=== PATIENT | female | born 1950 | race Caucasian/White ===

== ENCOUNTER 2018-08-18 10:08 | Inpatient (IN) | payer OTHER, MEDICARE ==
--- NOTE | 2018-08-18 10:35 | EDPHY ---
H & P Time Seen by Provider: 08/18/18 10:35 HPI/ROS: CHIEF COMPLAINT: Left chest wall pain and left leg pain HISTORY OF PRESENT ILLNESS: Patient is a 67-year-old female here with complaint of left lower leg pain and left chest wall pain since she fell from a ladder. She states she was 1 wrong up on the ladder when she slipped and cut her leg stuck between the 2 rungs of the ladder. She has been unable to wear right since. She was given 10 mg oxycodone by her before arrival in the emergency room. She takes no blood thinners. She denies any head injury. She denies any neck pain. She has no prior history of injury to the knee. She denies shortness of breath but does report pain with deep breath. REVIEW OF SYSTEMS: Constitutional: No fever, no chills. Eyes: No discharge. ENT: No sore throat. Cardiovascular: No chest pain, no palpitations. Respiratory: No cough, no shortness of breath. Gastrointestinal: No abdominal pain, no vomiting. Genitourinary: No hematuria. Musculoskeletal: No back pain. Skin: No rashes. Neurological: No headache. Smoking Status: Former smoker Physical Exam: General Appearance: Alert and no distress. No signs of head trauma including no raccoon eyes no Ragland signs, no scalp hematoma or crepitus. Neuro: Cranial nerves grossly intact Eyes: Pupils equal and round no injection. Respiratory: Chest is tender to the left chest wall without crepitus, lungs are clear to auscultation. Cardiac: regular rate and rhythm. Gastrointestinal: Abdomen is soft and nontender, no masses, bowel sounds normal. Musculoskeletal: Neck is supple and nontender. Tenderness to the left knee and left proximal fibula with large hematoma but no open skin lesions. Neurovascular intact distal to the left knee. Skin: No rashes or lesions. Constitutional: Initial Vital Signs Heart Rate 77 08/18/18 10:14 Respiratory Rate 20 08/18/18 10:14 Blood Pressure 121/73 H 08/18/18 10:14 O2 Sat (%) 99 08/18/18 10:14 O2 Delivery Mode Room Air Allergies/Adverse Reactions: levofloxacin Allergy (Verified 08/18/18 10:20) Rash Home Medications: Medication Instructions Recorded Herbals/Supplements -Info Only 1 ea PO DAILY 08/18/18 Medical Decision Making - Diagnostics Imaging Results: Imaging Impressions Tibia/Fibula X-Ray 08/18/18 10:40 Impression: Complex tibial plateau and proximal fibular fractures. 2. AP Pelvis, 2 views History: Pain post trauma, fall Findings: No pelvic ring fracture or malalignment is identified. Both hips are normally located. The SI joints and pubic symphysis look normal. There is degenerative sclerosis involving the left low lumbar spine and lumbosacral junction. Impression: No fracture or malalignment identified. 3. Left Tib-Fib, 3 views views History: Pain post fall Findings: The proximal tibial and fibular fractures are described in the knee x- ray report above. The more distal tibia and fibula are intact and normally aligned. The ankle mortise is grossly normally aligned. There is atherosclerotic calcification of the anterior and posterior tibialis arteries. Impression: 1. Intact mid and distal, tibia and fibula. 2. Atherosclerosis. Chest X-Ray 08/18/18 10:41 Impression: 3 left rib fractures. Pelvis X-Ray 08/18/18 10:41 Impression: Complex tibial plateau and proximal fibular fractures. 2. AP Pelvis, 2 views History: Pain post trauma, fall Findings: No pelvic ring fracture or malalignment is identified. Both hips are normally located. The SI joints and pubic symphysis look normal. There is degenerative sclerosis involving the left low lumbar spine and lumbosacral junction. Impression: No fracture or malalignment identified. 3. Left Tib-Fib, 3 views views History: Pain post fall Findings: The proximal tibial and fibular fractures are described in the knee x- ray report above. The more distal tibia and fibula are intact and normally aligned. The ankle mortise is grossly normally aligned. There is atherosclerotic calcification of the anterior and posterior tibialis arteries. Impression: 1. Intact mid and distal, tibia and fibula. 2. Atherosclerosis. Knee X-Ray 08/18/18 10:53 Impression: Complex tibial plateau and proximal fibular fractures. 2. AP Pelvis, 2 views History: Pain post trauma, fall Findings: No pelvic ring fracture or malalignment is identified. Both hips are normally located. The SI joints and pubic symphysis look normal. There is degenerative sclerosis involving the left low lumbar spine and lumbosacral junction. Impression: No fracture or malalignment identified. 3. Left Tib-Fib, 3 views views History: Pain post fall Findings: The proximal tibial and fibular fractures are described in the knee x- ray report above. The more distal tibia and fibula are intact and normally aligned. The ankle mortise is grossly normally aligned. There is atherosclerotic calcification of the anterior and posterior tibialis arteries. Impression: 1. Intact mid and distal, tibia and fibula. 2. Atherosclerosis. Extremity CT 08/18/18 12:18 Impression: Comminuted complex tibial plateau and fibular head fractures. Procedures: Long leg left posterior splint placed to the left leg ED Course/Re-evaluation: 67-year-old female here with ground level fall from a ladder. She has 3 left rib fractures with no pneumothorax better. Additionally she has a tibial plateau fracture and a proximal fibula fracture. I discussed this with on-call trauma DrIgnacio Who will admit the patient. Additionally discussed case with lynn who requests that she be placed in the splint after having CT scan of her knee done. Ortho agrees to consult on the patient while she is on the floor but likely will have surgery until Monday. Patient's pain is well controlled with fentanyl. There is no evidence of neurovascular injury, pneumothorax, intra- abdominal injury, closed head injury. - Data Points Laboratory Results: Laboratory Results 08/18/18 12:15 08/18/18 11:10 08/18/18 08/18/18 08/18/18 12:15 11:10 11:10 WBC 11.70 10^3/uL H 10^3/uL REJ (3.80-9.50) RBC 4.56 10^6/uL 10^6/uL TNP (4.18-5.33) Hgb 14.2 g/dL g/dL TNP (12.6-16.3) Hct 42.0 % % TNP (38.0-47.0) MCV 92.1 fL fL TNP (81.5-99.8) MCH 31.1 pg pg TNP (27.9-34.1) MCHC 33.8 g/dL g/dL TNP (32.4-36.7) RDW 13.0 % % TNP (11.5-15.2) Plt Count 267 10^3/uL 10^3/uL TNP (150-400) MPV 9.2 fL fL TNP (8.7-11.7) Neut % (Auto) 87.1 % H % TNP (39.3-74.2) Lymph % (Auto) 7.1 % L % TNP (15.0-45.0) Pope % (Auto) 4.8 % % TNP (4.5-13.0) Eos % (Auto) 0.3 % L % TNP (0.6-7.6) Baso % (Auto) 0.3 % % TNP (0.3-1.7) Nucleat RBC Rel Count 0.0 % % TNP (0.0-0.2) Absolute Neuts (auto) 10.18 10^3/uL H 10^3/uL TNP (1.70-6.50) Absolute Lymphs (auto) 0.83 10^3/uL L 10^3/uL TNP (1.00-3.00) Absolute Monos (auto) 0.56 10^3/uL 10^3/uL TNP (0.30-0.80) Absolute Eos (auto) 0.04 10^3/uL 10^3/uL TNP (0.03-0.40) Absolute Basos (auto) 0.04 10^3/uL 10^3/uL TNP (0.02-0.10) Absolute Nucleated RBC 0.00 10^3/uL 10^3/uL TNP (0-0.01) Immature Gran % 0.4 % % TNP (0.0-1.1) Immature Gran # 0.05 10^3/uL 10^3/uL TNP (0.00-0.10) Sodium 140 mEq/L mEq/L (135-145) Potassium 4.9 mEq/L mEq/L (3.3-5.0) Chloride 111 mEq/L H mEq/L (97-110) Carbon Dioxide 19 mEq/l L mEq/l (22-31) Anion Gap 10 mEq/L mEq/L (6-14) BUN 20 mg/dL mg/dL (7-23) Creatinine 0.7 mg/dL mg/dL (0.6-1.0) Estimated GFR > 60 Glucose 98 mg/dL mg/dL (70-100) Calcium 9.8 mg/dL mg/dL (8.5-10.4) Medications Given: Discontinued Medications Fentanyl (Sublimaze) 50 mcg IVP EDNOW ONE Stop: 08/18/18 10:43 Last Admin: 08/18/18 11:13 Dose: 50 mcg Departure - Departure Disposition: [facility]patient Acute
[2018-08-18] MEDS ORDERED: fentaNYL 100 MCG/2 ML INJ IVP ONE (10:42)
[2018-08-18 12:25] LABS: PLATELET COUNT 267 10^3/uL (150-400)
--- NOTE | 2018-08-18 12:53 | PDCONSULT ---
[place] Note: Chief complaint: Left leg pain after fall from a ladder History of present illness: This is a 67-year-old woman who had gotten up on a ladder to put away a walker and toilet seat from her 's recent surgeries and fell off the 1st step. Her leg was trapped and twisted she fell onto her left side. The patient complains of left leg pain mostly. Mild left chest pain on compression. She has no difficulty breathing no chest pain from a cardiac standpoint no respiratory difficulties. She is unable to bear weight on that left leg. She denies loss of consciousness she has no other complaints. Past medical history/surgical history significant for left forearm fracture and multiple bilateral cataract and retinal detachment surgeries, dental surgery. Family history: Negative Social history: Denies alcohol drug or tobacco use Review of systems significant for recent fall caused by mechanical reasons no cardiac or neurologic issues. All others are reviewed and are negative Medications at home: None Allergies: Levaquin Temp Pulse Resp BP Pulse Ox 72 16 133/83 H 99 08/18/18 11:17 08/18/18 11:17 08/18/18 11:17 08/18/18 11:17 Alert oriented no distress Extraocular motions intact Pupils 4 mm reactive Oropharynx bite intact no dental lesions Chest tender left lateral to palpation Lungs clear bilaterally Regular rate and rhythm Abdomen soft nontender not stented Left leg pain as expected. Did not go through range of motion due to recent fracture Distally neurovascularly intact Skin has normal turgor and tone Normal affect Nonfocal neurologic exam 08/18/18 12:15 08/18/18 11:10 Imaging Impressions Images personally reviewed on PACS with Dr. Moore hyper agree with findings Tibia/Fibula X-Ray 08/18/18 10:40 Impression: Complex tibial plateau and proximal fibular fractures. 2. AP Pelvis, 2 views History: Pain post trauma, fall Findings: No pelvic ring fracture or malalignment is identified. Both hips are normally located. The SI joints and pubic symphysis look normal. There is degenerative sclerosis involving the left low lumbar spine and lumbosacral junction. Impression: No fracture or malalignment identified. 3. Left Tib-Fib, 3 views views History: Pain post fall Findings: The proximal tibial and fibular fractures are described in the knee x- ray report above. The more distal tibia and fibula are intact and normally aligned. The ankle mortise is grossly normally aligned. There is atherosclerotic calcification of the anterior and posterior tibialis arteries. Impression: 1. Intact mid and distal, tibia and fibula. 2. Atherosclerosis. Chest X-Ray 08/18/18 10:41 Impression: 3 left rib fractures. Pelvis X-Ray 08/18/18 10:41 Impression: Complex tibial plateau and proximal fibular fractures. 2. AP Pelvis, 2 views History: Pain post trauma, fall Findings: No pelvic ring fracture or malalignment is identified. Both hips are normally located. The SI joints and pubic symphysis look normal. There is degenerative sclerosis involving the left low lumbar spine and lumbosacral junction. Impression: No fracture or malalignment identified. 3. Left Tib-Fib, 3 views views History: Pain post fall Findings: The proximal tibial and fibular fractures are described in the knee x- ray report above. The more distal tibia and fibula are intact and normally aligned. The ankle mortise is grossly normally aligned. There is atherosclerotic calcification of the anterior and posterior tibialis arteries. Impression: 1. Intact mid and distal, tibia and fibula. 2. Atherosclerosis. Knee X-Ray 08/18/18 10:53 Impression: Complex tibial plateau and proximal fibular fractures. 2. AP Pelvis, 2 views History: Pain post trauma, fall Findings: No pelvic ring fracture or malalignment is identified. Both hips are normally located. The SI joints and pubic symphysis look normal. There is degenerative sclerosis involving the left low lumbar spine and lumbosacral junction. Impression: No fracture or malalignment identified. 3. Left Tib-Fib, 3 views views History: Pain post fall Findings: The proximal tibial and fibular fractures are described in the knee x- ray report above. The more distal tibia and fibula are intact and normally aligned. The ankle mortise is grossly normally aligned. There is atherosclerotic calcification of the anterior and posterior tibialis arteries. Impression: 1. Intact mid and distal, tibia and fibula. 2. Atherosclerosis. Impression/plan 67-year-old woman with history of rib fractures nondisplaced minimal tenderness Complex left tibial fibular fracture including tibial plateau Consultation with Dr. Ayala from Orthopedic surgery likely surgery on Monday Admit to the hospital CT scan of the tibia and fibula per orthopedic surgery long leg splint. Nonweightbearing left lower extremity Regular diet for now Appropriate pain medication DVT prophylaxis
[2018-08-18] MEDS ORDERED: ZOLPIDEM TARTRATE 5 MG TAB PO PRN (12:54)
[2018-08-18] MEDS ORDERED: ONDANSETRON 4 MG/2 ML VIAL IVP PRN (12:54)
[2018-08-18] MEDS ORDERED: HYDROmorphONE/DILAUDID 1 MG/ML INJ IVP PRN (12:56)
[2018-08-18] MEDS: HYDROCODONE/APAP 5/325 TAB PO PRN ×2 (14:26→20:43)
--- NOTE | 2018-08-18 14:28 | PDMN ---
Medical Necessity Medical necessity: Pt meets IP criteria per & KEILY [id number]; est los >2 mn for eval/tx of L rib fxs x3 & tibial plateau fx s/p fall; requiring further monitoring, Ortho consult w/surgical intervention, pain management & therapies; per H&P & order 08/18/18
[2018-08-18] MEDS: IBUPROFEN 600 MG TAB PO SCH ×2 (16:43→22:16)
[2018-08-18] MEDS: KETOROLAC 30 MG/1 ML SDV IVP SCH (17:44)
--- NOTE | 2018-08-18 21:56 | GCON ---
DATE OF CONSULTATION: 08/18/2018 REASON FOR CONSULTATION: Left tibial plateau fracture. HISTORY OF PRESENT ILLNESS: The patient is a very pleasant 67-year-old female who fell 1 or 2 rungs off a ladder earlier today with her leg caught in the rungs and sustained a complex tibial plateau fr acture. She also sustained several rib fractures. She was admitted as a limited trauma. I was cons ulted for the tibial plateau fracture. She was also evaluated by Dr. Stafford due to the multiple sys tems involved. She was placed in a posterior splint and a CT was obtained while she was in the emerg ency department. PRIOR MEDICAL HISTORY: Unremarkable. PRIOR SURGICAL HISTORY: A forearm fracture on the left. MEDICATIONS: Only herbal supplements. SOCIAL HISTORY: She is . Her recently underwent a knee and hip surgery by Dr. Mccoy , just recently returned home. Does not smoke. Occasional alcohol use. REVIEW OF SYSTEMS: No loss of consciousness. No shortness of breath. No chest pain. Otherwise, re view of systems is unremarkable. PHYSICAL EXAMINATION: VITAL SIGNS: Blood pressure is 111/62, heart rate 73, respiratory rate 16, ox ygen saturation is 99% on room air. GENERAL: She is alert and oriented x3. HEENT: Normocephalic, atraumatic. Extraocular muscles are intact. NECK: Supple. There is no lymphadenopathy. No JVD. CHEST: Clear to auscultation. CARDIOVASCULAR: Regular rate and rhythm. MUSCULOSKELETAL: She is a little tender on the left side of her ribs, corresponding to the rib fractures. Left leg is in a sp lint. Compartments are swollen but soft. She has 1+ dorsalis pedis, posterior tibial pulses. Sensa tion to light touch is intact. There is no pain with passive stretch of the toes. IMAGING: Both x-rays, plain films as well as a CT and 3D reconstructions of the knee show a complex bicondylar tibial plateau fracture and a proximal fibula fracture. ASSESSMENT: Complex bicondylar tibial plateau fracture, left. PLAN: Will continue ice, elevation. She is quite swollen already. I do not know that we are going to be able to fix this immediately, this may need to be delayed at least a few days if not a week or two. I did explain that to her, she understands that. We will keep a close eye on her compartments over the next 48 hours, see if we can get her mobilized with Physical and Occupational Therapy, and t he ultimate plan will be for open reduction, internal fixation of the fracture. /[id number]/MODL
[2018-08-19] MEDS: KETOROLAC 30 MG/1 ML SDV IVP SCH ×2 (00:58→05:59)
[2018-08-19] MEDS: HYDROmorphONE/DILAUDID 2 MG/ML INJ IVP PRN ×2 (01:50→22:38)
[2018-08-19] MEDS: HYDROCODONE/APAP 5/325 TAB PO PRN ×4 (04:44→22:39)
[2018-08-19] MEDS: IBUPROFEN 600 MG TAB PO SCH ×3 (06:00→22:01)
[2018-08-19] MEDS ORDERED: ENOXAPARIN 30 MG/0.3 ML SYR SC SCH (09:00)
--- NOTE | 2018-08-19 10:48 | TRAUMAPN ---
Trauma Progress Note Assessment/Plan: 67 year old who fell from ladder with rib fx and comminuted tibial plateau fracture Tertiary survey performed and no additional injuries noted Cough deep breath for rib fx. No evidence of hemo or pneumothorax Awaiting for swelling to go down prior to surgery with Dr. Ayala. Will await his definitive time for OR I noted was on Toradol and Ibuprofen. Both doses given at 6 am. I discontinued the Toradol since she is able to take po. Regular diet for now S: Uncomfortable but pain is controlled Objective: Vital Signs Temp Pulse Resp BP Pulse Ox 36.4 C 66 12 121/68 H 100 08/19/18 08:00 08/19/18 08:00 08/19/18 08:00 08/19/18 08:00 08/19/18 08:00 08/18/18 08/19/18 08/20/18 05:59 05:59 05:59 Intake Total 250 Output Total 275 Balance -25 Physical Exam - Physical Exam General Appearance: WD/WN, alert, no apparent distress EENT: PERRL/EOMI, normal ENT inspection, No scleral icterus (R), No scleral icterus (L), No hearing deficit Respiratory: chest non-tender, lungs clear Cardiac/Chest: regular rate, rhythm, No edema Abdomen: normal bowel sounds, non-tender, soft Extremities: normal range of motion, non-tender, other (L lower extremity in splint. Sensation intact in toes. ) Neuro/Psych: no motor/sensory deficits, other (exception LLE)
--- NOTE | 2018-08-19 12:48 | SOAPPROG ---
NILO Progress Note Assessment/Plan: Assessment: Plan: 08/19/18 12:44 comminuted Lt tibial plateau fx Too swollen for surgery will need 1-2 weeks doubtfull she would be able to manage at home, had recent knee surgery will need snf placement Cont lovenox for dvt prroph Subjective: pain controlled o/n some tightness around ankle o/n relieved by loosening deena Objective: LE compartment swollen but soft 1+ dp/TP pulses no pain with passive stretch of toes Vital Signs Temp Pulse Resp BP Pulse Ox 36.4 C 78 16 101/57 L 95 08/19/18 12:00 08/19/18 12:00 08/19/18 12:00 08/19/18 12:00 08/19/18 12:00 08/18/18 08/19/18 08/20/18 05:59 05:59 05:59 Intake Total 250 Output Total 275 Balance -25 ICD10 Worksheet Patient Problems: Problems Problem Status Onset Tibial plateau fracture, left Acute - ICD10 Problem Qualifiers (1) Tibial plateau fracture, left Qualifiers: Encounter type: initial encounter Fracture type: closed Qualified Code(s) : S82.142A - Displaced bicondylar fracture of left tibia, initial encounter for closed fracture
--- NOTE | 2018-08-19 15:26 | ASMTLACE ---
GRETTA Acuity / Level of Answers: Yes Care: Did the patient have an inpatient admission? # of Emergency department Answers: 1-2 visits in the last 6 months Score: 4 Date Signed: 08/19/2018 03:26 PM Electronically Signed By:Juany Felton LCSW
--- NOTE | 2018-08-19 15:30 | ASMTCMCOM ---
CM Note CM Note Notes: 67yr old female admitted after a fall from a ladder with Tibial [pleateau fx, 3 rib fx's. Patient lives with her , Kaleb who reported just had hip or knee surgery. Patient will need to rest 1-2 wks for swelling to decrease before she can have surgery. Spoke to patient and who woud like her to go to [facility] before she has surgery. Referral made to [facility]. Date Signed: 08/19/2018 03:29 PM Electronically Signed By:Juany Felton LCSW
[2018-08-20] MEDS: HYDROCODONE/APAP 5/325 TAB PO PRN ×2 (04:40→11:06)
[2018-08-20] MEDS: IBUPROFEN 600 MG TAB PO SCH ×3 (05:25→21:24)
--- NOTE | 2018-08-20 08:29 | TRAUMAPN ---
Trauma Progress Note Assessment/Plan: 67-year-old patient presented with fall from a ladder. She sustained left rib fractures as well as complex left tibial plateau fracture. She has been seen by Dr. Ayala from Orthopedic surgery who has recommended operative treatment after swelling has gone down in 1-2 weeks. Pain level at a 4-5 overnight She is currently comfortable. Has less pain. She is able to move her foot a little bit better. Remains swollen as expected. Alert oriented no distress regular rate and rhythm Clear to auscultation. Tender left chest Abdomen soft nontender nondistended Extremity splinted left lower. Swelling as expected intact peripheral pulses good capillary refill Impression/plan Doing well from a respiratory and pain standpoint. Will need placement. Likely 24 hr prior to discharge. Follow up with Dr. Ayala for her left knee tibial plateau fracture no specific care for her rib fractures. Continue ISS. Pain medication orally if able. Objective: Vital Signs Temp Pulse Resp BP Pulse Ox 36.8 C 80 16 108/62 95 08/20/18 07:34 08/20/18 07:34 08/20/18 07:34 08/20/18 07:34 08/20/18 07:34 08/19/18 08/20/18 08/21/18 05:59 05:59 05:59 Intake Total 250 2049 Output Total 275 -2049
[2018-08-20] MEDS: ENOXAPARIN 40 MG/0.4 ML SYR SC SCH (09:27)
[2018-08-20] MEDS ORDERED: MAGNESIUM HYDROXIDE 30 ML UDCUP PO PRN (11:42)
[2018-08-20] MEDS ORDERED: BISACODYL 10 MG SUPP PR PRN (11:42)
[2018-08-20] MEDS ORDERED: POLYETHYLENE GLYCOL 3350 17 GM PKT PO PRN (11:42)
[2018-08-20] MEDS ORDERED: LACTULOSE 20 GM/30 ML UDCUP PO PRN (11:42)
--- NOTE | 2018-08-20 11:56 | SOAPPROG ---
NILO Progress Note Assessment/Plan: Assessment: Plan: 08/19/18 12:44 comminuted Lt tibial plateau fx Too swollen for surgery will need 1-2 weeks doubtfull she would be able to manage at home, had recent knee surgery will need snf placement Cont lovenox for dvt prroph 08/20/18 11:55 Cont Ice/elevation SNF possible surgery early next week F/U my office end of this week Subjective: pain managed with norco Objective: splint fitting well compartments swollen but soft moving toes without pain Vital Signs Temp Pulse Resp BP Pulse Ox 36.8 C 80 16 108/62 95 08/20/18 07:34 08/20/18 07:34 08/20/18 07:34 08/20/18 07:34 08/20/18 07:34 08/19/18 08/20/18 08/21/18 05:59 05:59 05:59 Intake Total 250 2050 Output Total 275 Balance -25 0 ICD10 Worksheet Patient Problems: Problems Problem Status Onset Tibial plateau fracture, left Acute - ICD10 Problem Qualifiers (1) Tibial plateau fracture, left Qualifiers: Encounter type: initial encounter Fracture type: closed Qualified Code(s) : S82.142A - Displaced bicondylar fracture of left tibia, initial encounter for closed fracture
[2018-08-20] MEDS: SENNOSIDES/DOCUSATE SODIUM TAB PO SCH ×2 (13:06→21:23)
[2018-08-20] MEDS: HYDROCODONE/APAP 10/325 TAB PO PRN ×2 (15:27→21:24)
[2018-08-20] MEDS: HYDROmorphONE/DILAUDID 2 MG/ML INJ IVP PRN ×2 (16:53→22:11)
[2018-08-20] MEDS ORDERED: SENNOSIDES/DOCUSATE SODIUM TAB PO SCH (21:00)
[2018-08-21] MEDS: HYDROCODONE/APAP 10/325 TAB PO PRN ×2 (05:25→14:39)
[2018-08-21] MEDS: IBUPROFEN 600 MG TAB PO SCH ×2 (05:25→14:39)
[2018-08-21] MEDS: HYDROmorphONE/DILAUDID 2 MG/ML INJ IVP PRN (07:53)
[2018-08-21] MEDS: SENNOSIDES/DOCUSATE SODIUM TAB PO SCH (10:02)
[2018-08-21] MEDS: ENOXAPARIN 40 MG/0.4 ML SYR SC SCH (10:02)
[2018-08-21 12:05] VITALS: BP 130/88
--- NOTE | 2018-08-21 12:37 | SOAPPROG ---
SOAP Progress Note Assessment/Plan: Assessment: comminuted Lt tibial plateau fx. She has had increased swelling in the splint. Dressing was loosened today and pain has improved. PE: Dressing removed. Compartments are soft. No pain to calf compression. NV intact LLE. Plan: Too swollen for surgery will need 1-2 weeks Splint removed and knee immobilizer placed Cont lovenox for dvt prroph Cont Ice/elevation Transfer to [facility] possible surgery early next week F/U my office end of this week (Monday) 08/21/18 12:34 Objective: Vital Signs Temp Pulse Resp BP Pulse Ox 37.2 C 98 16 130/88 H 97 08/21/18 12:03 08/21/18 12:03 08/21/18 12:03 08/21/18 12:03 08/21/18 12:03 08/20/18 08/21/18 08/22/18 05:59 05:59 05:59 Intake Total 0 300 Balance 2049 300 ICD10 Worksheet Patient Problems: Problems Problem Status Onset Tibial plateau fracture, left Acute
--- NOTE | 2018-08-21 13:02 | PDIAF ---
- Diagnosis Diagnosis: Left rib fractures, left tibial plateau fracture Code Status: Full Code - Medication Management Discharge Medications: Medications to Continue on Transfer Herbals/Supplements -Info Only 1 ea PO DAILY 08/18/18 [Last Taken 08/17/18] Enoxaparin [Lovenox 40 MG (*)] 40 mg SC DAILY syr 08/21/18 [Last Taken Unknown] HYDROcodone/APAP [Congress (*)] 1 tab PO Q6HRS PRN tab 08/21/18 [ Last Taken Unknown] Ibuprofen [Motrin (*)] 600 mg PO Q8HRS tab 08/21/18 [Last Taken Unknown] Polyethylene Glycol 3350 [Miralax 17 gm (*)] 17 gm PO DAILY PRN pkt 08/21/18 [ Last Taken Unknown] Sennosides/Docusate Sodium [Senokot-S] 1 - 2 tab PO BID tab 08/21/18 [Last Taken Unknown] Zolpidem Tartrate [Ambien 5MG (*)] 5 - 10 mg PO HS PRN tab 08/21/18 [Last Taken Unknown] Discharge Medications: Refer to the Discharge Home Medication list for PRN reason. - Orders Services needed: Registered Nurse, Physical Therapy, Occupational Therapy Isolation Type: None Diet Recommendation: no restrictions on diet Diet Texture: Regular Texture Diet Activity/Weight Bearing Restrictions: Nonweightbearing left lower extremity - Follow Up Care Current Providers and Referrals: Kirill Ayala MD [Medical Doctor] - follow up as scheduled (CALL OFFICE TO CONFIRM [facility]. [facility] REPAIR WILL BE DONE AFTER SWELLING SUBSIDES. ) NONE *PRIMARY CARE P,. [Primary Care Provider] -
--- NOTE | 2018-08-21 13:05 | PDDCSUM ---
Discharge Summary Discharge Summary: This is a 67-year-old patient who presented to the hospital by ambulance non trauma admit for a fall off a ladder. The patient was attempting to put away her 's durable medical equipment and got her leg trapped in the 1st rung of the ladder and fell onto the left side. She sustained left-sided rib fractures with minimal pain or displacement as well as a complicated tibial plateau fracture. She was seen in consultation by Dr. Kirill Ayala who has placed her initially in a splint and then in a knee immobilizer until definitive care can be accomplished. The patient will need ORIF when swelling has gone down until then skilled medical care is required. She will be placed on pain medication orally. She will have Lovenox for DVT prophylaxis. Follow- up appointment is scheduled with Dr. Ayala for this Monday. 08/18/18 12:15 08/18/18 11:10 She is back to her baseline cardiopulmonary status Her complaints are of left leg pain. Respiratory function is adequate. Medications to Continue on Transfer Herbals/Supplements -Info Only 1 ea PO DAILY 08/18/18 [Last Taken 08/17/18] Enoxaparin [Lovenox 40 MG (*)] 40 mg SC DAILY syr 08/21/18 [Last Taken Unknown] HYDROcodone/APAP 10 [[place] 10325 (*)] 1 tab PO Q6HRS PRN tab 08/21/18 [ Last Taken Unknown] Ibuprofen [Motrin (*)] 600 mg PO Q8HRS tab 08/21/18 [Last Taken Unknown] Polyethylene Glycol 3350 [Miralax 17 gm (*)] 17 gm PO DAILY PRN pkt 08/21/18 [ Last Taken Unknown] Sennosides/Docusate Sodium [Senokot-S] 1 - 2 tab PO BID tab 08/21/18 [Last Taken Unknown] Zolpidem Tartrate [Ambien 5MG (*)] 5 - 10 mg PO HS PRN tab 08/21/18 [Last Taken Unknown] Discharge Medications Discharge ED Provider: Luis Fernando Navarro Status: Z Complete Time Seen by Provider: 08/18/18 10:35 Condition: Good Triaged At: 08/18/18 10:14 Other ED Providers: Trauma,Services Emergency Discharge Date/Time: 08/18/18 13:58 Emergency Discharge Disposition: [facility] Acute Clinical Impression Emergency Discharge Comment: Admit Intervention Last Done Discharge Assessment-ED 08/18/18 13:44 Query Result Associated Mechanism of Injury/Trauma Yes Limited/Minor Trauma Patient Surgical No Evaluation Transmission Repairer Services Used During Patient No 's Visit Disposition [facility] Admission/Transfer [facility] Admit/Transfer Destination [facility] Admission Delayed Over 1 Hour Due to No Delay Pt Evaluated By Admitting MD Yes Recent History of MDRO/Clostridium No Difficile Any Patient Safety Concerns Fall Risk Significant Events in the ED No Mentation at Admission AAOx3 Medications Reviewed During Report Yes Psychosocial issues None Identified Report Called to Floor 13:35 Nurses Name/Number Receiving Report Dang JOSE [id number] Further Questions Contact Margarita ED Patient Required Critical Care During ED No Course IV Hydration/Medications Infusing at No Discharge Inpatient Discharge Date/Time: Inpatient Discharge Disposition: Long Term Facility Inpatient Discharge Comment: Instructions: Leg Fracture (DC) Rib Fracture (DC) Splint Care (DC) Prescriptions:
--- NOTE | 2018-08-21 14:27 | ASDISCHSUM ---
Discharge Information Plan Status:SNF Medically Cleared to Leave:08/21/2018 Discharge Date:08/21/2018 CM D/C Disposition[facility] ADT D/C Disposition:[facility] Projected Discharge Date:08/21/2018 03:00 PM Transportation at D/C: Discharge Delay Reason: Follow-Up Date:08/21/2018 03:00 PM Discharge Slot:3 - 18:01 pm - 12:00 am Final Diagnosis:Fall from ladder:tibial plateau fx, 3 rib fxs Placement Information Referral Type:*Snf/SNF Referral ID:[id number] Provider Name:[facility] Address 1:[address] Address 2: City:[place] Selection Factors: State:[place] Patient Contact Information Contact Name:JT Relationship: Address:[address] [facility] City:[place] Alternate Phone: State/Zip Code:[place] [address] Email: Financial Information Financial Class:Medicare Primary Plan Desc:MEDICARE INPATIENT Primary Plan Number:[id number] Secondary Plan Desc:AARP/MDR SUPPLEMENT Secondary Plan Number:[id number] Assessment Information LACE LACE Acuity / Level of Answers: Yes Care: Did the patient have an inpatient admission? # of Emergency department Answers: 1-2 visits in the last 6 months Score: 4 Date Signed: 08/19/2018 03:26 PM Electronically Signed By:Juany Felton LCSW [facility] CM Progress Note CM Note CM Note Notes: 67yr old female admitted after a fall from a ladder with Tibial [pleateau fx, 3 rib fx's. Patient lives with her , Kaleb who reported just had hip or knee surgery. Patient will need to rest 1-2 wks for swelling to decrease before she can have surgery. Spoke to patient and who woud like her to go to [facility] before she has surgery. Referral made to [facility]. Date Signed: 08/19/2018 03:29 PM Electronically Signed By:Juany Felton LCSW Case Management Discharge Plan Note Case Management Discharge Discharge Order Complete? Answers: Yes Patient to Obtain Answers: Other Notes: [facility] Medications Transportation Arranged Answers: Other Notes: [facility] Transport will Pick (Date 08/21/2018 04:00 PM & Time) Case Management Transport Answers: Yes Form Complete Faxed Final Orders Answers: Yes Notes: [facility] Agency/Facility Transfer Answers: Yes Report Printed & Faxed to Receiving Agency Discharge Comments Notes: Patient has been discharged to [facility]. Transporting by ambulance. Date Signed: 08/21/2018 02:25 PM Electronically Signed By:Juany Felton LCSW Intervention Information
[2018-08-21] MEDS ORDERED: HYDROmorphONE/DILAUDID 2 MG TAB PO PRN (14:54)
--- NOTE | 2018-08-21 16:56 | PDIAF ---
- Diagnosis Diagnosis: Left rib fractures, left tibial plateau fracture Code Status: Full Code - Medication Management Discharge Medications: Medications to Continue on Transfer Herbals/Supplements -Info Only 1 ea PO DAILY 08/18/18 [Last Taken 08/17/18] Enoxaparin [Lovenox 40 MG (*)] 40 mg SC DAILY syr 08/21/18 [Last Taken Unknown] HYDROcodone/APAP [[place] (*)] 1 tab PO Q6HRS PRN tab 08/21/18 [ Last Taken Unknown] HYDROmorphone HCL [Dilaudid 2 mg (*)] 2 mg PO Q6-8PRN PRN 08/21/18 [Last Taken Unknown] Ibuprofen [Motrin (*)] 600 mg PO Q8HRS tab 08/21/18 [Last Taken Unknown] Polyethylene Glycol 3350 [Miralax 17 gm (*)] 17 gm PO DAILY PRN pkt 08/21/18 [ Last Taken Unknown] Sennosides/Docusate Sodium [Senokot-S] 1 - 2 tab PO BID tab 08/21/18 [Last Taken Unknown] Zolpidem Tartrate [Ambien 5MG (*)] 5 - 10 mg PO HS PRN tab 08/21/18 [Last Taken Unknown] Discharge Medications: Refer to the Discharge Home Medication list for PRN reason. - Orders Services needed: Registered Nurse, Physical Therapy, Occupational Therapy Isolation Type: None Diet Recommendation: no restrictions on diet Diet Texture: Regular Texture Diet Activity/Weight Bearing Restrictions: Nonweightbearing left lower extremity - Follow Up Care Current Providers and Referrals: Kirill Ayala MD [Medical Doctor] - follow up as scheduled (CALL OFFICE TO CONFIRM APT. WUGERICAL REPAIR WILL BE DONE AFTER SWELLING SUBSIDES. ) NONE *PRIMARY CARE P,. [Primary Care Provider] -
== END 2018-08-21 18:15 | DRG 563 ==
LOC: F3N 14:10
PROVIDERS: ADMIT Surgery; ATTEND Surgery
PROC: 2W3RX1Z Immobilization of Left Lower Leg using Splint (ICD-10-PCS; principal; 2018-08-18)
DX: S82.142A Displaced bicondylar fracture of left tibia, initial encounter for closed fracture (principal); S82.832A Other fracture of upper and lower end of left fibula, initial encounter for closed fracture; S22.42XA Multiple fractures of ribs, left side, initial encounter for closed fracture; W11.XXXA Fall on and from ladder, initial encounter; Y92.019 Unspecified place in single-family (private) house as the place of occurrence of the external cause; Y93.E9 Activity, other interior property and clothing maintenance; Z87.891 Personal history of nicotine dependence
CPT/HCPCS: 96374; 97116-GP; 97161-GP; 97165-GO; 97530-GO; 97530-GP; 97535-GO; G8978-GP-CK; G8979-GP-CJ; G8987-GO-CK; G8988-GO-CH; J1170; J1650; J1885; J2270; J3010

== ENCOUNTER 2018-09-04 12:12 | Inpatient (IN) | payer OTHER, MEDICARE ==
--- NOTE | 2018-09-04 08:24 | PDGENHP ---
History & Physical Chief Complaint: Left tibial plateau fracture History of Present Illness: Martha is a pleasant 67 year old female who presented to the ER with left tibial plateau fracture on 08/18/18. Swelling was too bad initially to perform surgical intervention. She is now ready for surgical intervention. Pertinent Past, Social, Family History: PMH: non. Social history: non- contributory. Family history: non-contributory Relevant Physical Exam: Knee immobilizer in place. Swelling has improved significantly since patient was seen in the hospital. TTP over the medial and lateral tibial platea. Calf is soft to compression without pain. DF/PF of foot intact. NV intact LLE. Cardiorespiratory Assessment: RRR, CTAB
[2018-09-04] MEDS ORDERED: ceFAZolin 2 GM/DEXTROSE 100 ML IV ONE (12:25)
[2018-09-04] MEDS ORDERED: LR 1,000 ML IV ONE (12:26)
[2018-09-04] MEDS ORDERED: LIDOCAINE 1% 2 ML INJ ID PRN (12:26)
[2018-09-04] MEDS ORDERED: BACITRACIN 50,000 UNITS/10 ML SYR IRR ONE (13:22)
[2018-09-04] MEDS ORDERED: BUPIVACAINE/EPI 0.5% 30 ML SDV ONE (13:22)
[2018-09-04] MEDS ORDERED: THROMBIN (BOVINE) 5,000 UNIT VIAL TP ONE (13:50)
[2018-09-04] MEDS ORDERED: CALCIUM CHLORIDE 1 GM/10 ML INJ ONE (13:50)
[2018-09-04] MEDS ORDERED: oxyCODONE IR 5 MG TAB PO PRN (14:33)
[2018-09-04] MEDS ORDERED: ACETAMINOPHEN 500 MG TAB PO PRN (14:33)
[2018-09-04] MEDS ORDERED: ALBUTEROL 3 ML DEYVIAL IH PRN (14:33)
[2018-09-04] MEDS ORDERED: NALOXONE HCL 0.4 MG/ML INJ IVP PRN (14:33)
[2018-09-04] MEDS ORDERED: ONDANSETRON 4 MG/2 ML VIAL IVP PRN ×2 (14:33→16:58)
[2018-09-04] MEDS ORDERED: DEXAMETHASONE 4 MG/ML VIAL IVP PRN (14:33)
[2018-09-04] MEDS ORDERED: MIDAZOLAM 2 MG/2 ML VIAL IVP ONE (14:33)
--- NOTE | 2018-09-04 14:34 | PDANEPAE ---
ANE History of Present Illness Left Tibia Plateau Fx Repair ANE Past Medical History - Cardiovascular History Hx Hypertension: No Hx Arrhythmias: No Hx Chest Pain: No Hx Coronary Artery / Peripheral Vascular Disease: No Hx CHF / Valvular Disease: No Hx Palpitations: No - Pulmonary History Hx COPD: No Hx Asthma/Reactive Airway Disease: No Hx Recent Upper Respiratory Infection: No Hx Oxygen in Use at Home: No Hx Sleep Apnea: No Sleep Apnea Screening Result - Last Documented: Negative - Neurologic History Hx Cerebrovascular Accident: No Hx Seizures: No Hx Dementia: No - Endocrine History Hx Diabetes: No - Renal History Hx Renal Disorders: No Renal History Comment: HX OF UTI 4 YEARS AGO - Liver History Hx Hepatic Disorders: No Hepatic History Comment: has had a gallbladder attack in the past but nothing recent - Neurological & Psychiatric Hx Hx Neurological and Psychiatric Disorders: No - Cancer History Hx Cancer: No - Congenital Disorder History Hx Congenital Disorders: Yes Congenital History Comment: scoliosis - GI History Hx Gastrointestinal Disorders: Yes Gastrointestinal History Comment: Hx diverticulitis - Other Health History Other Health History: lower dentures. left lower leg with blisters r/t first cast - Chronic Pain History Chronic Pain: Yes (scoliosis) - Surgical History Prior Surgeries: Left wrist ORIF, 2015. retinal detachment repair 2017 ANE Review of Systems Review of Systems: - Exercise capacity METS (RN): 4 METS ANE Patient History - Allergies Allergies/Adverse Reactions: levofloxacin Allergy (Verified 08/18/18 10:20) Rash - Home Medications Home Medications: Herbals/Supplements -Info Only 1 ea PO DAILY 08/18/18 [Last Taken 08/17/18] CeleBREX 09/03/18 [Last Taken 09/03/18] Enoxaparin [Lovenox 40 MG (*)] DAILY 09/03/18 [Last Taken 09/03/18] Gabapentin 09/03/18 [Last Taken 09/04/18] HYDROcodone/APAP [[place] 10325 (*)] Q6HRS PRN 09/03/18 [Last Taken ] - NPO status NPO Since - Liquids (Date): 09/03/18 NPO Since - Liquids (Time): 20:00 NPO Since - Solids (Date): 09/04/18 NPO Since - Solids (Time): 12:00 - Smoking Hx Smoking Status: Never smoked - Family Anes Hx Family Hx Anesthesia Complications: none ANE Labs/Vital Signs - Vital Signs Blood Pressure: 115/72 Heart Rate: 77 Respiratory Rate: 18 O2 Sat (%): 93 Height: 160.02 cm Weight: 60.781 kg ANE Physical Exam - Airway Neck exam: FROM Mallampati Score: Class 2 Mouth exam: normal dental/mouth exam - Pulmonary Pulmonary: clear to auscultation - Cardiovascular Cardiovascular: regular rate and rhythym - ASA Status ASA Status: I ANE Anesthesia Plan Anesthesia Plan: general endotracheal anesthesia
[2018-09-04] MEDS ORDERED: PROPOFOL 200 MG/20 ML VIAL ONE (14:41)
[2018-09-04] MEDS ORDERED: ROCURONIUM 50 MG/5 ML VIAL ONE ×2 (14:43→15:41)
[2018-09-04] MEDS ORDERED: fentaNYL 100 MCG/2 ML INJ ONE ×3 (14:44→17:25)
[2018-09-04] MEDS ORDERED: HYDROmorphONE/DILAUDID 2 MG/ML INJ ONE ×2 (15:09→17:07)
[2018-09-04] MEDS ORDERED: DEXAMETHASONE 4 MG/ML VIAL ONE (15:11)
[2018-09-04] MEDS ORDERED: ONDANSETRON 4 MG/2 ML VIAL ONE (15:11)
[2018-09-04] MEDS ORDERED: SUGAMMADEX SODIUM 200 MG/2 ML VIAL IVP ONE (16:39)
[2018-09-04] MEDS ORDERED: NALOXONE HCL 0.4 MG/ML INJ ONE (16:49)
[2018-09-04] MEDS ORDERED: DIPHENOXYLATE/ATROPINE LOMOTIL 1 TAB PO PRN (16:58)
[2018-09-04] MEDS ORDERED: LACTULOSE 20 GM/30 ML UDCUP PO PRN (16:58)
[2018-09-04] MEDS ORDERED: diphenhydrAMINE 25 MG CAP PO PRN (16:58)
[2018-09-04] MEDS ORDERED: BISACODYL 10 MG SUPP PR PRN (16:58)
[2018-09-04] MEDS ORDERED: TEMAZEPAM 15 MG CAP PO PRN (16:58)
[2018-09-04] MEDS ORDERED: PROMETHAZINE HCL 25 MG SUPPR PR PRN (16:58)
[2018-09-04] MEDS ORDERED: MAGNESIUM HYDROXIDE 30 ML UDCUP PO PRN (16:58)
[2018-09-04] MEDS ORDERED: PROMETHAZINE HCL 25 MG/ML INJ IVP PRN (16:58)
[2018-09-04] MEDS ORDERED: ONDANSETRON DISINTEGRATING 4 MG TAB PO PRN (16:58)
[2018-09-04] MEDS ORDERED: METOCLOPRAMIDE 10 MG/2 ML VIAL IVP PRN (16:58)
[2018-09-04] MEDS ORDERED: LR 1,000 ML IV SCH (17:00)
--- NOTE | 2018-09-04 17:00 | POSTANESTH ---
Post Anesthetic Evaluation Cardiovascular Status: Normal, Stable Respiratory Status: Normal, Stable Level of Consciousness/Mental Status: Can Participate in Eval, Alert and Oriented Pain Control: Inadeq, Add Tx Required Nausea/Vomiting Control: Adequate, Prn Tx Ordered Complications Possibly Related to Anesthesia: None Noted
[2018-09-04] MEDS: fentaNYL 100 MCG/2 ML INJ IVP PRN ×4 (17:01→17:45)
--- NOTE | 2018-09-04 17:06 | POSTOPPROG ---
Post Op Note Date of Operation: 09/04/18 Surgeon: Kirill Ayala Engraver Apprentice Decorative: Connie Munoz Anesthesiologist: Crista Anesthesia: GET(General Endotracheal) Pre-op Diagnosis: Left tibial plateau fracture Post-op Diagnosis: Left tibial plateau fracture Indication: Left tibial plateau fracture Procedure: ORIF left tibial plateau fracture Inf/Abcess present in the surg proc area at time of surgery?: No Depth: Deep Incisional (Fascial) EBL: Minimal
[2018-09-04] MEDS: HYDROmorphONE/DILAUDID 2 MG/ML INJ IVP PRN ×3 (17:11→17:36)
[2018-09-04] MEDS: oxyCODONE IR 5 MG TAB PO PRN ×2 (19:19→19:52)
[2018-09-04] MEDS: CYCLOBENZAPRINE 10 MG TAB PO PRN (19:46)
[2018-09-04] MEDS: SENNOSIDES/DOCUSATE SODIUM TAB PO SCH (19:46)
[2018-09-04] MEDS: ACETAMINOPHEN 325 MG TAB PO SCH (19:46)
[2018-09-04] MEDS: FAMOTIDINE 20 MG TAB PO SCH (19:48)
[2018-09-04] MEDS: ASPIRIN 325 MG TAB PO SCH (19:49)
[2018-09-05] MEDS: oxyCODONE IR 5 MG TAB PO PRN ×5 (01:24→21:16)
[2018-09-05] MEDS: ACETAMINOPHEN 325 MG TAB PO SCH ×5 (01:28→17:28)
--- NOTE | 2018-09-05 05:29 | GOP ---
DATE OF OPERATION: 09/04/2018 SURGEON: Kirill Ayala MD BARREL [employer]SHAKE ADJUSTER: Layo Jane. ANESTHESIOLOGIST: Dr. Tobin. PREOPERATIVE DIAGNOSIS: Bicondylar tibial plateau fracture. POSTOPERATIVE DIAGNOSIS: Bicondylar tibial plateau fracture. PROCEDURE PERFORMED: Open reduction internal fixation, bicondylar tibial plateau fracture. FINDINGS: INDICATIONS: Mayra is a 67-year-old female, who about 2-1/2 weeks ago, fell off a ladder, and susta ined a complex bicondylar tibial plateau fracture. She had immediate swelling around the knee. She was mobilized, transferred to [facility] until swelling had subsided, and she was brought to the OR t [facility] for definitive fixation of her fractures. DESCRIPTION OF PROCEDURE: After appropriate informed consent was obtained, patient was taken to the operating room, placed supine on the operating room table. Timeout was performed. Patient was ident ified, correct site was identified, and matched with radiographs available in the room. She received 2 g of Ancef preoperatively. Following the induction of general endotracheal tube anesthesia, the l t lower extremity was prepped and draped in usual sterile fashion. I exsanguinated the limb, infla earl the tourniquet to 250 mmHg. Total tourniquet time was 90 minutes. I made a standard utility lat eral incision. Soft tissues were carefully dissected. Bleeding was controlled with electrocautery. I elevated off the anterior compartment musculature. Fracture was easily visualized. The piece was completely displaced and rotated. I then created a small medial incision to create a window to elev ate the medial side and posterior side of the joint. While looking into the joint, there was some ar ticular cartilage damage. These loose fragments were removed. Meniscus was intact, as was the ACL a nd PCL. The fracture was just on the lateral side of the tibial spines. I was able to line up the f ragment, compress it with a tenaculum clamp, and then hold it in place with K-wires. A precontoured plate was placed. I centered it slightly lower to enable me to get better purchase in the posterior fragments. A series of proximal locking screws, followed by 1 compression screw distally, to charisse s the fracture. I confirmed their position with AP lateral fluoroscopic images. We then finished th e shaft screws, locking those. Final imaging, both AP and lateral, were obtained, which showed satis factory reduction of the fracture fragment. Joint space was realigned. Wounds were irrigated. The deep layers were closed with 0 Vicryl, superficial layers closed with 2-0 Vicryl, skin closed with st aples. We instilled 30 mL of 0.5% Marcaine with epinephrine on the incision. A sterile dressing and knee immobilizer were applied. Patient was awakened from anesthesia, taken to the recovery room in satisfactory condition. There were no immediate intraoperative complications. Layo Jane's assistance was required throughout the entire case. IMPLANTS: Synthes 3.5 mm proximal tibial locking plate. TOTAL TOURNIQUET TIME: 90 minutes at 250 mmHg. COMPLICATIONS: None. DRAINS: None. /[id number]/MODL
[2018-09-05] MEDS: FAMOTIDINE 20 MG TAB PO SCH ×2 (08:45→21:16)
[2018-09-05] MEDS: ASPIRIN 325 MG TAB PO SCH (08:45)
[2018-09-05] MEDS: SENNOSIDES/DOCUSATE SODIUM TAB PO SCH ×2 (08:45→21:16)
[2018-09-05] MEDS: CYCLOBENZAPRINE 10 MG TAB PO PRN ×2 (08:55→21:17)
[2018-09-05] MEDS ORDERED: POLYETHYLENE GLYCOL 3350 17 GM PKT PO PRN (11:00)
--- NOTE | 2018-09-05 11:24 | SOAPPROG ---
SOAP Progress Note Assessment/Plan: Assessment: Plan: 09/05/18 11:22 POD#1 ORIF LT tibial plateau cont pain management ASA dvt proph NWB LLE Subjective: Painful o/n, a little better now Objective: DRessing c/d/i calf soft 5/5 df/pf 1+ dp/tp pulses Vital Signs Temp Pulse Resp BP Pulse Ox 36.6 C 92 14 123/72 H 98 09/05/18 07:39 09/05/18 07:39 09/05/18 07:39 09/05/18 07:39 09/05/18 07:39 09/04/18 09/05/18 09/06/18 05:59 05:59 05:59 Intake Total 2160 Output Total 1630 300 Balance 530 -300 ICD10 Worksheet Patient Problems: Problems Problem Status Onset Tibial plateau fracture, left Acute
--- NOTE | 2018-09-05 14:48 | PDMN ---
Medical Necessity Medical necessity: IP only procedure CPT 96986 L tibial plateau ORIF
[2018-09-05] MEDS: GABAPENTIN 100 MG CAP PO SCH ×2 (15:16→21:17)
--- NOTE | 2018-09-05 15:40 | ASMTCMCOM ---
CM Note CM Note Notes: Pt admitted from short term rehab stay with [facility] after presenting to our ED with a tibial fracture from a fall before rehab. Pt received corrective surgery yesterday. PT and OT recommending SNF. Pt prefers to return to [facility]. Per pt's RN pt not likely to discharge today due to pain control but may discharge tomorrow. Referral sent to [facility] and they are willing to accept. CM to follow. D/C Plan: [facility] Date Signed: 09/05/2018 03:38 PM Electronically Signed By:Nasra Harrison
[2018-09-06] MEDS: ACETAMINOPHEN 325 MG TAB PO SCH ×5 (01:55→23:39)
[2018-09-06] MEDS: oxyCODONE IR 5 MG TAB PO PRN ×4 (01:55→20:33)
[2018-09-06] MEDS: FAMOTIDINE 20 MG TAB PO SCH ×2 (08:10→20:33)
[2018-09-06] MEDS: GABAPENTIN 100 MG CAP PO SCH ×3 (08:10→23:39)
[2018-09-06] MEDS: ASPIRIN 325 MG TAB PO SCH (08:10)
[2018-09-06] MEDS: SENNOSIDES/DOCUSATE SODIUM TAB PO SCH ×2 (08:10→20:33)
[2018-09-06] MEDS: KETOROLAC 15 MG/1 ML SDV IVP SCH ×3 (12:41→23:39)
[2018-09-06] MEDS: ENOXAPARIN 40 MG/0.4 ML SYR SC SCH (15:45)
[2018-09-06] MEDS ORDERED: KETOROLAC 15 MG/1 ML SDV IVP SCH (18:00)
[2018-09-06] MEDS: POLYETHYLENE GLYCOL 3350 17 GM PKT PO PRN (20:32)
[2018-09-07] MEDS: KETOROLAC 15 MG/1 ML SDV IVP SCH ×2 (06:06→11:23)
[2018-09-07] MEDS: ACETAMINOPHEN 325 MG TAB PO SCH ×2 (06:06→11:23)
[2018-09-07] MEDS: SENNOSIDES/DOCUSATE SODIUM TAB PO SCH (08:42)
[2018-09-07] MEDS: ASPIRIN 325 MG TAB PO SCH (08:42)
[2018-09-07] MEDS: POLYETHYLENE GLYCOL 3350 17 GM PKT PO PRN (08:42)
[2018-09-07] MEDS: oxyCODONE IR 5 MG TAB PO PRN ×2 (08:42→14:10)
[2018-09-07] MEDS: GABAPENTIN 100 MG CAP PO SCH (08:43)
[2018-09-07] MEDS: ENOXAPARIN 40 MG/0.4 ML SYR SC SCH (08:43)
[2018-09-07] MEDS: FAMOTIDINE 20 MG TAB PO SCH (08:43)
--- NOTE | 2018-09-07 10:58 | PDIAF ---
- Diagnosis Diagnosis: Left tibial plateau fracture Code Status: Full Code - Medication Management Discharge Medications: electronically signed and located in the Home Medication List. - Orders Services needed: Home Care, Registered Nurse, Physical Therapy, Occupational Therapy Home Care Face to Face: I certify that this patient was under my care and that I had the required [id number] encounter meeting the encounter requirements on the discharge day. My findings support the fact that the patient is homebound as defined in Home Care Face to Face Continued: CMS Chapter 7 Medicare Benefits Manual 30.1.1 , The condition of the patient is such that there exists a normal inability to leave home and consequently, leaving home would require a considerable and taxing effort. Isolation Type: None Diet Recommendation: no restrictions on diet Diet Texture: Regular Texture Diet Activity/Weight Bearing Restrictions: NWB LLE. Remain in knee immobilizer. Additional Instructions: Continue NWB in the knee immobilizer. Keep dressing clean and dry. Follow up in office in 7 days for repeat evaluation, radiograph and wound check. - Follow Up Care Current Providers and Referrals: Kirill Ayala MD [Medical Doctor] - Alber Ahuja MD [Primary Care Provider] -
[2018-09-07 11:28] VITALS: BP 133/70
--- NOTE | 2018-09-07 11:34 | SOAPPROG ---
SOAP Progress Note Assessment/Plan: Assessment on 09/06/18: This is a soap note from assessment on 09/06/18. Martha was having significant pain and swelling of the left knee and leg. PE: Dressing clean and dry. LLE is significantly swollen with pain to compression of the calf. NV intact LLE. Knee immobilizer in place Plan:1. I discussed with Dr. Ayala and he would like to do scheduled Toradol for pain 2. US LLE to evaluate for DVT 3. Continue po Oxycodone Addendum: US did show a clot, Jamie was notified and patient was therefore restarted on Lovenox 40mg. 09/07/18 11:31 Objective: Vital Signs Temp Pulse Resp BP Pulse Ox 36.4 C 84 16 133/70 H 97 09/07/18 11:27 09/07/18 11:27 09/07/18 11:27 09/07/18 11:27 09/07/18 11:27 09/06/18 09/07/18 09/08/18 05:59 05:59 05:59 Intake Total 800 1100 350 Output Total 1100 300 350 Balance -300 800 0 ICD10 Worksheet Patient Problems: Problems Problem Status Onset Tibial plateau fracture, left Acute
--- NOTE | 2018-09-07 12:10 | ASMTLACE ---
LACE Length of stay for Answers: 3 days current admission Acuity / Level of Answers: Yes Care: Did the patient have an inpatient admission? Comorbidities - select Answers: Opioid dependence all that apply / Chronic pain Other Notes: Diverticulitis # of Emergency department Answers: 1-2 visits in the last 6 months Score: 12 Date Signed: 09/07/2018 12:10 PM Electronically Signed By:MIGUELINA Banks
--- NOTE | 2018-09-07 12:11 | ASMTCMCOM ---
CM Note CM Note Notes: Pt medically stable for return to [facility]. Orders sent in [employer]. DAMON Leong to call report. Celina with scheduled wc transport for 14:30. Date Signed: 09/07/2018 12:11 PM Electronically Signed By:MIGUELINA Banks
--- NOTE | 2018-09-07 17:33 | ASDISCHSUM ---
Discharge Information Plan Status:SNF Medically Cleared to Leave: Discharge Date:09/07/2018 02:43 PM D/C [facility] ADT D/C Disposition:[facility] Projected Discharge Date:09/06/2018 11:00 AM Transportation at D/C:Wheelchair Van Discharge Delay Reason: Follow-Up Date:09/06/2018 11:00 AM Discharge Slot: Final Diagnosis: Placement Information Referral Type:*[facility]entiary/SNF Referral ID:[id number] Provider Name:[facility] Address 1:[address] Address 2: City:[place] Selection Factors: State:[place] Patient Contact Information Contact Name:JT Relationship: Address:[address] [facility] City:[place] Alternate Phone: State/Zip Code:[place] [address] Email: Financial Information Financial Class:Medicare Primary Plan Desc:MEDICARE INPATIENT Primary Plan Number:[id number] Secondary Plan Desc:AARP/MDR SUPPLEMENT Secondary Plan Number:[id number] Assessment Information LACE LACE Length of stay for Answers: 3 days current admission Acuity / Level of Answers: Yes Care: Did the patient have an inpatient admission? Comorbidities - select Answers: Opioid dependence all that apply / Chronic pain Other Notes: Diverticulitis # of Emergency department Answers: 1-2 visits in the last 6 months Score: 12 Date Signed: 09/07/2018 12:10 PM Electronically Signed By:MIGUELINA Banks MARK CM Progress Note CM Note CM Note Notes: Pt admitted from short term rehab stay with [facility] after presenting to our ED with a tibial fracture from a fall before rehab. Pt received corrective surgery yesterday. PT and OT recommending SNF. Pt prefers to return to [facility]. Per pt's RN pt not likely to discharge today due to pain control but may discharge tomorrow. Referral sent to [facility] and they are willing to accept. CM to follow. D/C Plan: [facility] Date Signed: 09/05/2018 03:38 PM Electronically Signed By:Nasra Harrison [facility] Progress Note CM Note CM Note Notes: Pt medically stable for return to [facility]. Orders sent in [employer]. DAMON Leong to call report. Patrick with scheduled wc transport for 14:30. Date Signed: 09/07/2018 12:11 PM Electronically Signed By:MIGUELINA Banks Intervention Information Intervention Type:*LIZBET-Signed Date of Service:09/05/2018 11:24 AM Patient Type:Observation Staff Member:Brock Estrada Hours: Discipline: Severity: Comment:
== END 2018-09-07 14:43 | DRG 493 ==
LOC: FSGY 12:12 → F3N 16:59 → OBSVTOIN 09-05 14:42
PROVIDERS: ADMIT Orthopaedic Surgery; ATTEND Orthopaedic Surgery
PROC: 0QSH04Z Reposition Left Tibia with Internal Fixation Device, Open Approach (ICD-10-PCS; principal; 2018-09-05)
DX: S82.142A Displaced bicondylar fracture of left tibia, initial encounter for closed fracture (principal); I82.402 Acute embolism and thrombosis of unspecified deep veins of left lower extremity; W11.XXXA Fall on and from ladder, initial encounter; Y92.019 Unspecified place in single-family (private) house as the place of occurrence of the external cause; Y93.E9 Activity, other interior property and clothing maintenance
CPT/HCPCS: 97110-GP; 97116-GP; 97161-GP; 97166-GO; 97535-GO; C1713; C1769; G8978-GP-CJ; G8979-GP-CI; G8987-GO-CI; G8988-GO-CI; J0690; J1100; J1170; J1650; J1885; J2250; J2270; J2310; J2405; J2704; J3010

== ENCOUNTER → 2018-12-19 | Outpatient (CLI) | payer OTHER, MEDICARE | LOC: FIMAGING 13:53 | PROVIDERS: ATTEND Internal Medicine | DX: M81.0 Age-related osteoporosis without current pathological fracture (principal) ==

== ENCOUNTER 2019-05-01 08:38 | Inpatient (IN) | payer OTHER, MEDICARE | END 2019-05-04 18:09 | disposition home or self-care (01) | LOC: F3E 14:02 ==